=== PATIENT | female | born 1940 | race African-American/Black ===

== ENCOUNTER → 2017-04-05 | Outpatient (CLI) | payer OTHER ==
[~2017-04-05] VITALS: Ht 165.1 cm; Wt 63.5 kg
[~2017-04-05] MED LIST: ELIQUIS2.5 MG PO; ELIQUIS5 MG PO; K-DUR 20 MEQ T20 MEQ PO; KLOR-CON 1010 MEQ PO; LASIX 40 MG TAB40 M2 PO; LOPRESSOR50 PO; PACERONE 200 M200 M1 PO; POTASSIUM20 PO
[2017-04-05 10:00] VITALS: BP 148/61
== END ==
LOC: SEN 08:44
DX: I10 Essential (primary) hypertension (principal); I48.91 Unspecified atrial fibrillation; R53.83 Other fatigue; R53.81 Other malaise

== ENCOUNTER → 2017-04-27 | Outpatient (CLI) | payer OTHER ==
[~2017-04-27] VITALS: Ht 162.6 cm; Wt 64.4 kg
[2017-04-27 09:44] VITALS: BP 139/56
== END ==
LOC: SEN 08:23
DX: I11.0 Hypertensive heart disease with heart failure (principal); I50.9 Heart failure, unspecified; I48.91 Unspecified atrial fibrillation

== ENCOUNTER → 2017-12-03 | Outpatient (CLI) | payer OTHER ==
[~2017-12-03] VITALS: Ht 165.1 cm; Wt 66.3 kg
[2017-12-03 09:12] VITALS: BP 158/71
[2017-12-03 10:55] LABS: ABSOLUTE NEUTROPHILS 3.6 thou/uL (1.4-8.2); BASOPHILS 0.9 % (0.0-2.0); EOSINOPHILS 1.3 % (0.0-3.0); HEMATOCRIT 30.3 % (37.0-47.0); LYMPHOCYTES 27.2 % (24.0-44.0); MCH 28.5 pg (26.0-34.0); MCHC 33.1 g/dL (28.0-37.0); MCV 86.3 fL (80.0-100.0); MONOCYTES 6.2 % (1.0-8.0); PLATELET COUNT 420 thou/uL (150-400); POLYS 64.4 % (36.0-66.0); RBC 3.51 mil/uL (4.20-5.00); RDW 16.7 % (10.5-14.5); WBC 5.5 thou/uL (4.0-11.0)
[2017-12-03 11:09] LABS: ALBUMIN 3.7 g/dL (3.4-5.0); ANION GAP 10 mmol/L (7-16); BUN 22 mg/dL (7-18); CALCIUM 9.3 mg/dL (8.5-10.1); CHLORIDE 101 mmol/L (98-107); CHOLESTEROL 271 mg/dL (<200); CO2 27 mmol/L (21-32); CREATININE 1.3 mg/dL (0.6-1.0); GLUCOSE 86 mg/dL (74-106); HDL CHOLESTEROL 80 mg/dL (>40); LDL CHOLESTEROL 166 mg/dL (<100); MAGNESIUM 2.3 mg/dL (1.8-2.4); POTASSIUM 3.9 mmol/L (3.5-5.1); SGOT 22 U/L (15-37); SGPT 38 U/L (30-65); SODIUM 138 mmol/L (136-145); TC:HDL 3.4 Ratio (Not establshd); TOTAL BILIRUBIN 0.3 mg/dL (<0.1-1.0); TOTAL PROTEIN 8.6 g/dL (6.4-8.2); TRIGLYCERIDE 126 mg/dL (<150); VLDL 25 mg/dL (<40)
[2017-12-03 11:50] LABS: TSH 2.025 uIU/mL (0.358-3.740)
[2017-12-03 23:07] LABS: GLYCOHEMOGLOBIN (HGB A1C) 5.8 % (4.8-5.6)
== END ==
LOC: SEN 08:25
PROVIDERS: Nurse Practitioner Family
DX: I48.91 Unspecified atrial fibrillation (principal); I11.0 Hypertensive heart disease with heart failure; I50.9 Heart failure, unspecified; L60.0 Ingrowing nail; Z79.899 Other long term (current) drug therapy

== ENCOUNTER → 2018-09-01 | Outpatient (CLI) | payer OTHER | LOC: SEN 11:00 | DX: I11.0 Hypertensive heart disease with heart failure (principal); I50.9 Heart failure, unspecified; G31.84 Mild cognitive impairment of uncertain or unknown etiology; I48.91 Unspecified atrial fibrillation; R32 Unspecified urinary incontinence ==

== ENCOUNTER 2019-03-26 09:22 | Inpatient (IN) | payer OTHER ==
[~2019-03-26] VITALS: Ht 165.1 cm; Wt 62.6 kg
[2019-03-26] VITALS (38 sets, daily range): BP systolic 80–156; BP diastolic 47–99
[2019-03-26 09:47] LABS: BE(vivo) 0.5 mmol/L (-2 to +3); PCO2 35.1 mmHg (35.0-45.0); pH 7.452 (7.360-7.450); sO2 98.2 % (92.0-98.0)
[2019-03-26 10:17] LABS: ABSOLUTE NEUTROPHILS 9.4 thou/uL (1.4-8.2); BASOPHILS 0.3 % (0.0-2.0); HEMATOCRIT 41.8 % (37.0-47.0); HEMOGLOBIN 13.4 gm/dL (12.0-15.0); LYMPHOCYTES 7.5 % (24.0-44.0); MCH 30.7 pg (26.0-34.0); PLATELET COUNT 274 thou/uL (150-400); POLYS 83.2 % (36.0-66.0); RBC 4.36 mil/uL (4.20-5.00); RDW 14.8 % (10.5-14.5); WBC 11.3 thou/uL (4.0-11.0)
[2019-03-26 10:24] LABS: CALCIUM 8.6 mg/dL (8.5-10.1); CREATININE 0.8 mg/dL (0.6-1.0)
[2019-03-26 10:28] LABS: POTASSIUM 4.6 mmol/L (3.5-5.1)
[2019-03-26 10:32] LABS: TROPONIN-I 0.13 ng/mL (<0.06)
[2019-03-26 10:33] LABS: APTT 36.2 Seconds (24.5-32.8); INR 1.8; PROTIME 18.2 Seconds (9.3-11.4)
[2019-03-26] MEDS ORDERED: DILTIAZEM ER180 M2 PO (11:17)
[2019-03-26] MEDS ORDERED: LIPITOR40 MG PO (11:17)
[2019-03-26] MEDS ORDERED: PREDNISONE 5 MG5 M1 PO (11:18)
[2019-03-26] MEDS ORDERED: IPRAT-ALBUT 0.5-3 ML INH (11:18)
[2019-03-26 12:03] LABS: BE(vivo) -2.6 mmol/L (-2 to +3); HCO3 20.9 mmol/L (22.0-26.0); PO2 114.2 mmHg (80.0-100.0); pH 7.432 (7.360-7.450); sO2 98.3 % (92.0-98.0)
--- NOTE | 2019-03-26 12:16 | NUR ---
CALLED DAUGHTERIVANIA WITH UPDATE
--- NOTE | 2019-03-26 15:49 | NUR ---
PT'S DAUGHTER IVANIA CALLED. SHE WILL BE UP TO VISIT THE PT TOMORROW 03/27/19 AND WILL SIGN ANY CONSENTS AT THAT TIME.
--- NOTE | 2019-03-26 19:44 | NUR ---
[place] [address]. PT ALERT TO SELF. PT ARRIVED ON BIPAP. PULMONARY PHYSICIAN STATED IT WAS OKAY TO PLACE PT ON NC AND REMOVE BIPAP. PT PLACED ON NC AND DESATED IMMEDIATELY TO 82%. BIPAP PUT BACK ON. PT TOLERATING BIPAP WELL. NEED FOR ADDITIONAL IV FOR MEDICATIONS. IV THERAPY RN PLACE NEW IV VIA US. PT HAS REMAINS NPO THIS SHIFT DUE TO NEED FOR CONTINOUS BIPAP.
[2019-03-27] VITALS (76 sets, daily range): BP systolic 53–139; BP diastolic 24–90
[2019-03-27 04:34] LABS: HEMATOCRIT 35.3 % (37.0-47.0); HEMOGLOBIN 11.6 gm/dL (12.0-15.0); MCH 31.1 pg (26.0-34.0); MCHC 32.7 g/dL (28.0-37.0); MCV 95.2 fL (80.0-100.0); RBC 3.71 mil/uL (4.20-5.00); RDW 14.5 % (10.5-14.5)
[2019-03-27 04:50] LABS: CALCIUM 7.9 mg/dL (8.5-10.1); CREATININE 0.8 mg/dL (0.6-1.0); POTASSIUM 3.7 mmol/L (3.5-5.1)
--- NOTE | 2019-03-27 06:00 | NUR ---
NO OVERNIGHT EVENTS. PT REMAINED ON BIPAP THROUGHOUT THE NIGHT. ON CARDIZEM GTT, TITRATED DOWN TOLERATED. PT IS PROGRESSING TOWARDS GOALS. WILL CONTINUE TO MONITOR.
--- NOTE | 2019-03-27 12:27 | NUR ---
FAXED H/P TO [facility] SPOKE WITH DANIELE IN ADM SHE RECEIVED UPDATE. DP TO FOLLOW.
--- NOTE | 2019-03-27 13:11 | 2DMMODE ---
[facility] [place] [address] 2 D/M-MODE ECHOCARDIOGRAM Name: SHERRY BRADFORD Room #: 237-P ADM IN ..#: [id number] Admission: 03/26/19 Attend Phys: Roni Michel MD Discharge: Date of : 42 Report #: [id number] THIS REPORT FOR: cc: Jatinder Green MD, Shyam MD Lundgren,Frank Maria MD [facility] THIS REPORT FOR: //name// APPROVED REPORT Study performed: 03/27/2019 10:24:12 EXAM: Comprehensive 2D, Doppler, and color-flow Echocardiogram Patient Location: ICU Room #: 237 Status: routine BSA: 1.76 HR: 90 bpm BP: 92/56 mmHg Rhythm: Atrial Fibrillation Other Information Study Quality: Good Indications Congestive Heart Failure Mitral Valve Disease Atrial Fibrillation Elevated Troponin Hypertension/HDD 2D Dimensions RVDd: 42.34 mm IVSd: 17.18 (7-11mm) LVOT Diam: 17.19 (18-24mm) LVDd: 35.91 mm PWd: 17.33 (7-11mm) Ascending Ao: 34.86 (22-36mm) LVDs: 19.84 (25-40mm) Aortic Root: 35.67 mm IVC: 24.00 mm Volumes Left Atrial Volume (Systole) Single Plane 4CH: 109.14 mL Single Plane 2CH: 101.88 mL LA ESV Index: 65.00 mL/m2 [facility] [address] [place] [address] 2 D/M-MODE ECHOCARDIOGRAM Name: SANCHEZSHERRY Room #: 237-P [facility] IN .R.#: [id number] Admission: 03/26/19 Attend Phys: Roni Michel MD Discharge: Date of : 42 Report #: [id number] Aortic Valve AoV Peak Eduardo.: 1.41 m/s AO Peak Gr.: 9.04 mmHg LVOT Max P.65 mmHg LVOT Max V: 0.81 m/s [place]LE Vmax: 1.34 cm2 Mitral Valve MV Peak Gr.: 14.84 mmHg MV Mean Gr.: 8.25 mmHg MV Max Eduardo.: 1.92 m/s MV Mean Eduardo.: 1.36 m/s MV VTI: 424.64 mm MV PHT: 116.99 ms MVA (PHT): 1.88 cm2 Pulmonary Valve PV Peak Eduardo.: 0.85 m/s PV Peak Gr.: 2.86 mmHg Tricuspid Valve TR Peak Eduardo.: 2.95 m/s TR Peak Gr.: 34.85 mmHg PA Pressure: 50.00 mmHg Left Ventricle The left ventricle is normal size. There is normal LV segmental wall motion. Moderate concentric left ventricular hypertrophy. The left ventricular systolic function is normal. Left ventricular systolic function is hyperdynamic. LVEF is 65-70%. This study is not technically sufficient to allow evaluation of the LV diastolic function due to atrial fibrillation. Right Ventricle The right ventricle is normal size. The right ventricular systolic function is normal. Atria Left atrium is dilated. Right atrium is dilated. Aortic Valve Aortic valve is calcified. No aortic regurgitation is present. There is no aortic valvular stenosis. Mitral Valve There is mitral annular calcification. Thickened and restricted mitral leaflet motion. Mild mitral regurgitation. Moderate mitral stenosis. Calculated mitral valve area is 1.9 cm2 with maximum [facility] [address] [place] [address] 2 D/M-MODE ECHOCARDIOGRAM Name: SHERRY BRADFORD Room #: 237-P ADM IN M.R.#: [id number] Admission: 03/26/19 Attend Phys: Roni Michel MD Discharge: Date of : 42 Report #: [id number] pressure gradient of 16 mmHg and mean pressure gradient of 8 mmHg. Tricuspid Valve The tricuspid valve is normal in structure. There is mild to moderate tricuspid regurgitation. Estimated PAP 50 mmHg. Pulmonic Valve The pulmonary valve is normal in structure. Mild pulmonic regurgitation. Great Vessels The aortic root is normal in size. The inferior vena cava is dilated with no inspiratory collapse. Pericardium There is no pericardial effusion. <Conclusion> The left ventricular systolic function is normal. There is normal LV segmental wall motion. Moderate concentric left ventricular hypertrophy. LVEF is 65-70%. Both atria are dilated. Aortic valve is calcified. No aortic regurgitation or stenosis There is mitral annular calcification. Thickened and restricted mitral leaflet motion. Moderate mitral stenosis. Mild mitral insufficiency Calculated mitral valve area is 1.9 cm2 with maximum pressure gradient of 16 mmHg and mean pressure gradient of 8 mmHg. There is mild to moderate tricuspid regurgitation. Estimated pulmonary artery pressure of 50 mmHg. There is no pericardial effusion. <ELECTRONICALLY SIGNED> By: Frank Harrell MD, FACC 03/27/191309 09 09 Frank Harrell MD, FACC /INF
--- NOTE | 2019-03-27 15:35 | NUR ---
sbp in 58/30, hr-112. pt asymptomatic, placed back to bed with [address] hammonds notified of low bp. ns infusing per order with nibp increasing to 75/42, map-53. levophed started at 2 mcg/min.
--- NOTE | 2019-03-27 19:15 | NUR ---
minimal progress. minimal muscular discomfort only when coughing. afib, lasix iv given in am, then when pt up in chair in afternoon, bp low. ns bolus infused, started on levophed gtt & currently infusing at 4 mcg/min to keep map>60. adequate urine output. daughter present, provided support to her mother, status updated.
[2019-03-28] VITALS (74 sets, daily range): BP systolic 58–154; BP diastolic 34–98
--- NOTE | 2019-03-28 05:01 | NUR ---
ASSUMED CARE OF PATIENT AT 1900. VSS, AFEBRILE. LEVOPHED GTT TITRATED TO KEEP MAP ABOVE 60. TURNED OFF, BP REMAINS STABLE. DENIES PAIN, SOA OR N/V. O2 TITRATED DOWN WELL. TOLERATING 1L NC. PROGRESSING TOWARDS POC GOALS.
[2019-03-28 07:25] LABS: CALCIUM 8.5 mg/dL (8.5-10.1)
[2019-03-28 07:28] LABS: POTASSIUM 2.9 mmol/L (3.5-5.1)
--- NOTE | 2019-03-28 08:37 | NUR ---
chart review. spoke with bedside nurse in icu. pt up in bed, cont on isolation. set up for breakfast noted pt able to feed self. pt a & o to self, and know she in hospital, pleasant with confusion and forgetfulness. intro to cm, and dcp. pt stated " yes i will be going to my home"/patrick. cm spoke with cg at [facility], where pt lived ltc since march 03, pt in [facility]. " she walks with walker. she is set up for meals. assist x 1 for dressing and bathing. takes btx but not on any oxygen. incontinet of urine and continent of bowels. cm unable to reach contact dwayne, phone call with no answer. will cont following as needed for dc needs.
--- NOTE | 2019-03-28 10:04 | NUR ---
Nutrition: pt admitted with influenza A, afib RVR, sepsis, hypoxia. Assessed due to sepsis dx. Chart reviewed. Stable weights. Good appetite, observed 100% intake at breakfast this am. Hx oral dysphagia per chart review but usually on regular diet. Nsg reported pt pockets meds, may need to crush. Consider ST eval if needed but no other s/s aspiration. K-2.9, repleting. Low risk.
--- NOTE | 2019-03-28 19:20 | NUR ---
SLOWLY PROGRESSING. AFIB, CARDIZEM AND METOPROLOL GIVEN FOR PAC'S, FREQUENT SHORT RUN'S OF SVT 3-5 BEATS, PVC'S, FUSION BEATS. PT VERY RESPONSIVE TO LASIX. PT HAD CCU TRANSFER ORDERS HOWEVER REMAINED IN ICU RELATED TO RESTARTING LEVOPHED FOR ADEQUATE BP CONTROL. REPLACED ON 1L/NC WHEN SAO2 INTO UPPER 80'S, NONPRODUCTIVE DEEP BREATHING AND COUGH IMPROVING, TOLERATING DIET. FAMILY CALLED TO INQUIRE REGARDING PT STATUS, UPDATED.
[2019-03-29] VITALS (23 sets, daily range): BP systolic 90–139; BP diastolic 54–94
[2019-03-29 04:37] LABS: CALCIUM 8.6 mg/dL (8.5-10.1); POTASSIUM 3.1 mmol/L (3.5-5.1)
--- NOTE | 2019-03-29 05:35 | NUR ---
PT CONFUSED. ABLE TO COMMUNICATE NEEDS. VSS, OFF LEVOPHED AT 2100. POTASSUIM REPLACED DURING THE SHIFT PER PROTOCOL. DENIED PAIN. AFEBRILE. NO COMPLAINS. PT SLOWLY PROGRESSING TOWARDS GOALS. WILL CONTINUE TO MONITOR.
--- NOTE | 2019-03-29 14:42 | NUR ---
discussed during los, possible will be moved out of icu today. dcp [facility] memory care unit when medical stable for dc. update provided to [facility] liaison.
--- NOTE | 2019-03-29 17:06 | NUR ---
FAXED CLINICAL UPDATE TO [facility] SPOKE WITH DANIELE IN ADM SHE RECEIVED UPDATE. DP TO FOLLOW.
--- NOTE | 2019-03-29 18:30 | NUR ---
replacing potassium/mag per electrolyte protocol. afib with pac's, pvc's, 1 L/nc, deep breathing and cough, lungs sounds improved, goncalves previously removed, female catheter in place. progressing.
[2019-03-30] VITALS (11 sets, daily range): BP systolic 90–141; BP diastolic 59–88
[2019-03-30 05:15] LABS: HEMATOCRIT 42.4 % (37.0-47.0); HEMOGLOBIN 13.6 gm/dL (12.0-15.0); MCH 30.5 pg (26.0-34.0); MCHC 32.2 g/dL (28.0-37.0); MCV 94.8 fL (80.0-100.0); RBC 4.47 mil/uL (4.20-5.00); RDW 14.7 % (10.5-14.5); WBC 7.4 thou/uL (4.0-11.0)
[2019-03-30 05:16] LABS: CALCIUM 8.6 mg/dL (8.5-10.1); POTASSIUM 3.8 mmol/L (3.5-5.1)
--- NOTE | 2019-03-30 06:01 | NUR ---
Shift summary: Pt remains pleasantly confused, oriented to self. Dementia baseline. Assists with turns. A fib per monitor. AM labs pending. Afebrile BP stable. Room air. Lungs clear. BS active. No stool this shift. Tolerating po meds and fluids w/ assistance. Incontinent of urine s/p goncalves removal 03/29/19. Female external catheter in place, working better this am. Plan of care reviewed and updated as able. Awaiting cc tele bed availability. No family visit this shift. Pt progressing towards discharge goals.
--- NOTE | 2019-03-30 12:54 | NUR ---
cm left message for [facility] liaison that pt will possible be medically stable for dc tomorrow back to [facility]. cm spoke with pt daughter dwayne," thank you for update, and that will be fine"/daughter. will cont following as needed for dc needs. at dc bedside nurse to call report to [phone] ask for memory care unit. send chart copy with pt back to [facility]. fax dc orders to [phone].
--- NOTE | 2019-03-30 13:22 | NUR ---
ALERT MOST OF THE MORNING, ORIENTED TO PERSON AND TIME AND FOLLOWS COMMANDS. DENIES PAIN. VITALS STABLE WITH CHRONIC AFIB. TOLERATING PUREED DIET. PATIENT WILL TRANSFER OUT OF ICU WHEN ROOM IS AVAILABLE ON [facility] FLOOR.
[2019-03-31 04:00] VITALS: BP 135/87
[2019-03-31 08:00] VITALS: BP 118/76
[2019-03-31 12:00] VITALS: BP 104/72
[2019-03-31] MEDS ORDERED: CARDIZEM60 MG PO (12:21)
[2019-03-31] MEDS ORDERED: ASPIR 8181 MG PO (12:22)
[2019-03-31] MEDS ORDERED: LASIX 20 MG TAB20 MG PO (12:22)
[2019-03-31] MEDS ORDERED: POTASSIUM20 PO (12:22)
[2019-03-31] MEDS ORDERED: LEVAQUIN 750 M750 MG PO (12:23)
[2019-03-31] MEDS ORDERED: PREDNISONE 10 M10 M1 PO (12:23)
[2019-03-31 12:28] VITALS: BP 104/72
--- NOTE | 2019-03-31 13:36 | NUR ---
REPORT CALLED TO ARPAN AT [facility] WHERE PATIENT WILL BE DISCHARGING BACK TO. PATIENT WILL BE PICKED UP VIA STRETCHER AT APPROX. 1430
--- NOTE | 2019-03-31 15:44 | NUR ---
PATIENT PICKED UP AT 1435 TO TRANSPORT BACKT TO [facility].
--- NOTE | 2019-04-05 12:31 | EKG ---
[facility] [place] [address] ELECTROCARDIOGRAM REPORT Name: SHERRY BRADFORD Room #: 237-P [facility] [place] M.R.#: [id number] Admission: 03/26/19 Attend Phys: Roni Michel MD Discharge: 03/31/19 Date of : 42 Report #: [id number] THIS REPORT FOR: cc: Jatinder Green MD, Shyam MD Lundgren,Frank Maria MD [facility] THIS REPORT FOR: //name// [facility] ED Test Date: 2019-03-26 Test Time: 09:29:27 Pat Name: SHERRY BRADFORD Department: Room: 237 Gender: F Conventions Assistant: zara : 1940 Requested By: Rhonda Ayon Order Number: [id number] MD: Frank Harrell Measurements Intervals [place] Rate: 170 P: 166 [place]: 108 QRS: 16 QRSD: 88 T: 123 QT: 254 QTc: 428 Interpretive Statements Atrial fibrillation with a rapid ventricular response Paired ventricular premature complexes Poor R wave progression Nonspecific ST and T wave abnormality. Assessment limited by marked baseline artifact No previous ECG available for comparison Electronically Signed On 03-27-2019 17:14:40 TAP PULLER by Frank Harrell [email or web address] <ELECTRONICALLY SIGNED> By: Frank Harrell MD, [facility] 03/27/19 1714 8 8 Frank Harrell MD, [facility] /EPI
--- NOTE | 2019-04-05 12:42 | EKG ---
[facility] [place] [address] ELECTROCARDIOGRAM REPORT Name: SHERRY BRADFORD Room #: 237-P [facility] IN M.R.#: [id number] Admission: 03/26/19 Attend Phys: Roni Michel MD Discharge: 03/31/19 Date of : 42 Report #: [id number] THIS REPORT FOR: cc: Jatinder Green MD, Shyam MD Lundgren,Frank Maria MD [facility] THIS REPORT FOR: //name// [facility] Test Date: 2019-03-28 Test Time: 07:33:38 Pat Name: SHERRY BRADFORD Department: Room: 237 P Gender: F Hide Inspector And Sorter: JOSE : 1940 Requested By: Frank Harrell Order Number: [id number] MD: Frank Harrell Measurements Intervals [place] Rate: 83 P: [place]: QRS: -15 QRSD: 111 T: 126 QT: 412 QTc: 485 Interpretive Statements Atrial fibrillation Ventricular premature complex Poor R wave progression Nonspecific ST and T wave abnormality Compared to ECG 03/27/2019 09:04:22 No significant change was found Electronically Signed On 03-28-2019 9:26:55 TRACTOR ENGINE MECHANIC by Frank Harrell [email or web address] <ELECTRONICALLY SIGNED> By: Frank Harrell MD, FAC 03/28/19925 2 2 Frank Harrell MD, [facility] /EPI
--- NOTE | 2019-04-05 12:42 | EKG ---
[facility] [place] [address] ELECTROCARDIOGRAM REPORT Name: SHERRY BRADFORD Room #: 237-P [facility] IN M.R.#: [id number] Admission: 03/26/19 Attend Phys: Roni Michel MD Discharge: 03/31/19 Date of : 42 Report #: [id number] THIS REPORT FOR: cc: Jatinder Green MD, Shyam MD Lundgren,Frank Maria MD [facility] THIS REPORT FOR: //name// [facility] Test Date: 2019-03-27 Test Time: 09:04:22 Pat Name: SHERRY BRADFORD Department: Room: 237 P Gender: F Bread Pan Greaser: JOSE : 1940 Requested By: Rosemary Sal Order Number: [id number] MD: Frank Harrell Measurements Intervals [place] Rate: 89 P: [place]: QRS: 18 QRSD: 95 T: 115 QT: 375 QTc: 457 Interpretive Statements Atrial fibrillation Abnormal inferior Q waves Probable anteroseptal infarct, old Nonspecific T abnormalities No previous ECG available for comparison Electronically Signed On 03-27-2019 17:40:50 INSURANCE SALES MANAGER by Frank Harrell [email or web address] <ELECTRONICALLY SIGNED> By: Frank Harrell MD, [facility] 03/27/19 1740 0904 0904 Frank Harrell MD, [facility] /EPI
== END 2019-03-31 14:45 | DRG 871 ==
LOC: ER 09:22 → EROBS 12:25 → ICU 12:25 → EROBS 13:10 → ICU 14:18
PROVIDERS: Emergency Medicine; Internal Medicine; Internal Medicine Pulmonary Disease; Nurse Practitioner; ADMIT Hospitalist
DX: A41.9 Sepsis, unspecified organism (principal); J96.01 Acute respiratory failure with hypoxia; I50.33 Acute on chronic diastolic (congestive) heart failure; I48.21 Permanent atrial fibrillation; D68.59 Other primary thrombophilia; I38 Endocarditis, valve unspecified; I11.0 Hypertensive heart disease with heart failure; R65.20 Severe sepsis without septic shock; I48.91 Unspecified atrial fibrillation; J10.1 Influenza due to other identified influenza virus with other respiratory manifestations; E78.5 Hyperlipidemia, unspecified; F03.90 Unspecified dementia, unspecified severity, without behavioral disturbance, psychotic disturbance, mood disturbance, and anxiety; I16.0 Hypertensive urgency; I35.0 Nonrheumatic aortic (valve) stenosis; I95.9 Hypotension, unspecified; I05.0 Rheumatic mitral stenosis; Z79.82 Long term (current) use of aspirin; Z87.891 Personal history of nicotine dependence; Z79.899 Other long term (current) drug therapy
CPT/HCPCS: 10078

== ENCOUNTER 2020-02-27 12:15 | Inpatient (IN) | payer OTHER ==
[~2020-02-27] VITALS: Ht 154.9 cm; Wt 53.2 kg
[2020-02-27 12:15] VITALS: BP 180/115
[~2020-02-27 12:15] MED LIST changes: +ASPIR 8181 MG PO; +CARDIZEM60 MG PO; +DILTIAZEM ER180 M2 PO; +IPRAT-ALBUT 0.5-3 ML INH; +LASIX 20 MG TAB20 MG PO; +LEVAQUIN 750 M750 MG PO; +LIPITOR40 MG PO; +PREDNISONE 10 M10 M1 PO; +PREDNISONE 5 MG5 M1 PO
[2020-02-27 12:51] LABS: ABSOLUTE NEUTROPHILS 15.8 thou/uL (1.4-8.2); BASOPHILS 0.2 % (0.0-2.0); HEMATOCRIT 42.3 % (37.0-47.0); HEMOGLOBIN 13.8 gm/dL (12.0-15.0); LYMPHOCYTES 1.3 % (24.0-44.0); MCHC 32.5 g/dL (28.0-37.0); MCV 92.1 fL (80.0-100.0); MONOCYTES 6.7 % (1.0-8.0); PLATELET COUNT 248 thou/uL (150-400); POLYS 91.8 % (36.0-66.0); RBC 4.59 mil/uL (4.20-5.00); RDW 17.1 % (10.5-14.5); WBC 17.2 thou/uL (4.0-11.0)
[2020-02-27 13:04] LABS: CALCIUM 9.6 mg/dL (8.5-10.1); POTASSIUM 3.5 mmol/L (3.5-5.1)
[2020-02-27 13:13] LABS: ALBUMIN 3.6 g/dL (3.4-5.0); TOTAL BILIRUBIN 1.9 mg/dL (0.2-1.0); TOTAL PROTEIN 7.7 g/dL (6.4-8.2); TROPONIN-I 0.14 ng/mL (<0.06)
[2020-02-27 13:15] LABS: URINE BILIRUBIN NEGATIVE (Negative); URINE BLOOD 2+ (Negative); URINE CLARITY CLEAR; URINE COLOR YELLOW; URINE GLUCOSE-RANDOM* 1+ (Negative); URINE KETONES NEGATIVE (Negative); URINE LEUKOCYTES-REFLEX NEGATIVE (Negative); URINE NITRITE-REFLEX NEGATIVE (Negative); URINE PROTEIN (DIPSTICK) 2+ (Negative); URINE SPECIFIC GRAVITY 1.025 (1.005-1.035)
[2020-02-27 13:53] LABS: BACTERIA-REFLEX 1-9 Few /HPF (None Seen); CASTS None Seen /LPF (None Seen); CRYSTALS None Seen /LPF (None Seen); SQUAMOUS 0-3 Few /LPF (0-3); URINE RBC 0-2 Rare /HPF (0-2); URINE WBC-REFLEX None Seen /HPF (0-5)
--- NOTE | 2020-02-27 14:23 | EKG ---
[address] [address] ELECTROCARDIOGRAM REPORT Name: SANCHEZSHERRY [id number] Admission: 02/27/20 Attend Phys: Discharge: Date of : 42 Report #: [id number] [facility] ED Test Date: 2020-02-27 Test Time: 12:57:16 Pat Name: SHERRY BRADFORD Department: Room: Gender: F Crimper Operator: BRIANDA : 1940 Requested By: Adán Baldwin Order Number: [id number] MD: David Kapoor Measurements Intervals [place] Rate: 106 P: [place]: QRS: 8 QRSD: 89 T: 173 QT: 348 QTc: 463 Interpretive Statements Atrial fibrillation Ventricular premature complex Left ventricular hypertrophy Inferior infarct, old Baseline wander in lead(s) II,III,aVR,aVF Compared to ECG 03/28/2019 07:33:38 Left ventricular hypertrophy now present Myocardial infarct finding now present Poor R-wave progression no longer present ST (T wave) deviation no longer present Electronically Signed On 02-27-2020 14:23:22 GLUE SPREADING MACHINE OPERATOR by David Kapoor [email or web address] <ELECTRONICALLY SIGNED> By: David Kapoor MD, [facility] 02/27/20 1423 1257 1257 David Kapoor MD, [facility] /EPI
--- NOTE | 2020-02-27 17:39 | NUR ---
Patient discharged via stretcher pickup on 03-30-2019 to [facility]. 80-year-old female who presents via EMS from assisted for evaluation of increasing weakness and shortness of breath. COVID Negative Antigen. PCR pending results. Cardiology consultation secondary to atrial fibrillation and found to have increasing dyspnea and fatigue. Noted elevated Troponin. Admitted with A-Fib with RVR, Sepsis, Hypoxia, CHF. Patient has been admitted to hospitalist Dr. Law. Patient currently resides at [facility] and her daughter Madalyn is listed as next of kin with home # of [phone] and work of [phone]. NOTE: PT and OT orders are in. Spoke with Madalyn daughter and updated on above and introduced role of CM and explained that CM will follow for discharge planning as anticipated return to [facility] which daughter was in agreement to.
[2020-02-28] VITALS (13 sets, daily range): BP systolic 92–925; BP diastolic 58–83
[2020-02-28 05:32] LABS: CALCIUM 9.2 mg/dL (8.5-10.1); MAGNESIUM 1.5 mg/dL (1.8-2.4); POTASSIUM 3.7 mmol/L (3.5-5.1)
--- NOTE | 2020-02-28 11:04 | NUR ---
WOUND CARE RISK ASSESSMENT; THE PATIENT IS APHASIC. THERE ARE NO WOUNDS IDENTIFIED. 80 YEAR OLD. THE PATIENTS ALBUMIN IS 3.5. SHE SEEMS TO BE WELL CARED FOR. RECOMMENDATIONS; -PRAFO BOOTS. -Q2H TURNING -LOW AIRLOSS BED PUMP. DISCUSSED WITH GONZALO
[2020-02-28 14:10] LABS: HEMATOCRIT 42.7 % (37.0-47.0); HEMOGLOBIN 13.5 gm/dL (12.0-15.0); MCH 30.1 pg (26.0-34.0); MCHC 31.6 g/dL (28.0-37.0); MCV 95.4 fL (80.0-100.0); RBC 4.47 mil/uL (4.20-5.00); RDW 18.6 % (10.5-14.5); WBC 18.9 thou/uL (4.0-11.0)
--- NOTE | 2020-02-28 14:46 | NUR ---
Case opened to follow for dc planning. Pt is a ltc resident at [facility]. They are holding her bed and can accept her back when medically stable. Dtr Madalyn aware of her admission and updated by nursing. The pt is being treated sepsis/afib/uti. Covid negative test and no previous positive testing per [facility]. PT/OT evaling pt today. The pt does have skilled medicare days available if needed when she returns to the facility. Clinical update faxed to the [facility] liason. Dc plan is to return to the facility. She has been living there since March 2019. Will follow.
--- NOTE | 2020-02-28 19:03 | NUR ---
PT IS PLEASANT, ALERT ONLY TO SELF. PT HAS HX OF DEMENTIA. PT NPO IN AM FOR ABDOMINAL SCAN. PT/OT/SPEECH CONSULTED. PHYSICAL THERAPY WORKED WITH PT, BUT PT WAS DIFFICULT TO DIRECT. PT WOULD ANSWER YES OR NO QUESTIONS, BUT REQUIRES A LOT OF INITIATION FOR TASKING. PT CARDIZEM GTT D/C'D, ORAL CARDIZEM GIVEN. SPEECH ASSESSED PT TO BE PUREED DIET. ORAL MEDS SHOULD BE GIVEN IN APPLE SAUCE; PT EXPRESSED SHE DID NOT LIKE PUDDING. FALL PRECAUTIONS IN PLACE. POC IS TO CONTINUE TO MONITOR CHF; PT INCREASED OUTPUT TODAY. NO CONCERNS AT THIS TIME.
[2020-02-29 00:02] VITALS: BP 142/66
[2020-02-29 04:29] VITALS: BP 159/66
[2020-02-29 05:09] LABS: BASOPHILS 0.2 % (0.0-2.0); EOSINOPHILS 0.1 % (0.0-3.0); HEMATOCRIT 37.4 % (37.0-47.0); HEMOGLOBIN 12.8 gm/dL (12.0-15.0); LYMPHOCYTES 2.2 % (24.0-44.0); MCH 31.4 pg (26.0-34.0); MCHC 34.2 g/dL (28.0-37.0); MCV 91.8 fL (80.0-100.0); MONOCYTES 5.9 % (1.0-8.0); PLATELET COUNT 229 thou/uL (150-400); POLYS 91.6 % (36.0-66.0); RBC 4.08 mil/uL (4.20-5.00); RDW 16.8 % (10.5-14.5); WBC 17.5 thou/uL (4.0-11.0)
[2020-02-29 06:04] LABS: ALBUMIN 2.8 g/dL (3.4-5.0); CALCIUM 8.6 mg/dL (8.5-10.1); CREATININE 0.9 mg/dL (0.6-1.0); POTASSIUM 3.1 mmol/L (3.5-5.1); TOTAL BILIRUBIN 1.4 mg/dL (0.2-1.0); TOTAL PROTEIN 6.4 g/dL (6.4-8.2)
--- NOTE | 2020-02-29 06:06 | NUR ---
ASSUMED CARE OF THE PATIENT AT 1900; AOX2; ANSRS YES/NO QUES; DOESN'T ALWAYS FOLLOW COMMANDS; BEDREST; Q2 TURNS/ Z-GUARD PASTE FOR BOTTOM; PRAFO BOOTS/ SCDs IN PLACE; NO APPARENT PAIN; AFIB W/PVCS AT TIMES ON THE MONITOR; PLAN IS FOR PATIENT TO CONTINUE CURRENT THERAPY; WILL CONTINUE TO MONITOR.
--- NOTE | 2020-02-29 07:43 | EKG ---
[place] [address] [facility] [place] [address] ELECTROCARDIOGRAM REPORT Name: SHERRY BRADFORD Room #: 211- ADM IN M.R.#: [id number] Admission: 02/27/20 Attend Phys: Shaun Law MD Discharge: Date of : 42 Report #: [id number] [facility] Test Date: 2020-02-29 Test Time: 07:08:27 Pat Name: SHERRY BRADFORD Department: Room: 211 P Gender: F Professional Soccer Player: CONRAD : 1940 Requested By: Frank Harrell Order Number: [id number] MD: Frank Harrell Measurements Intervals [place] Rate: 105 P: [place]: QRS: -29 QRSD: 104 T: 124 QT: 354 QTc: 468 Interpretive Statements Atrial fibrillation Ventricular premature complex Abnormal R-wave progression, late transition Inferior infarct, old Compared to ECG 02/27/2020 12:57:16 Nonspecific change in the lateral ST and T wave segments Electronically Signed On 02-29-2020 7:43:39 CHAIN PULLER by Frank Harrell [email or web address] <ELECTRONICALLY SIGNED> By: Frank Harrell MD, [facility] 02/29/20 0743 7 7 Frank Harrell MD, [facility] /EPI
[2020-02-29 08:30] VITALS: BP 141/63
--- NOTE | 2020-02-29 12:33 | NUR ---
FLEETS ENEMA AT THIS TIME PT TOLERATED WELL NO PAIN OR DISCOMFORT.
--- NOTE | 2020-02-29 15:17 | NUR ---
PATIENT RESTING IN BED SHE IS TURNED SIDE TO SIDE. HAS IV KCL INFUSING ORDERED. PT IS FED PUREED DIET, DRINKS REGULAR FLUIDS THAT ARE ENCOURAGED.
[2020-02-29 16:06] LABS: INR 1.2; PROTIME 12.4 Seconds (9.3-11.4)
[2020-02-29 16:45] VITALS: BP 144/60
--- NOTE | 2020-02-29 18:59 | NUR ---
CALLED PATIENT'S DAUGHTER TO UPDATE HER ABOUT PATIENT'S CONDITION. ALSO CALLED [facility]RE[facility] PATIENT RECIEVED FLU VACCINE 12/06/2019 HAD PHARMACY TAKE OFF APR.
[2020-02-29 20:09] VITALS: BP 121/65
--- NOTE | 2020-03-01 02:07 | NUR ---
PT AOX2, TO PERSON AND PLACE. PT NOTED TO BE PLEASANTLY CONFUSED, COOPERATIVE WITH PLAN OF CARE. PT DENIES PAIN AND SOB AT REST. PT NOTED TO HAVE SOB WITH EXERTION. PT REMAINS ON 2L O2 PER NC. PT TOLERATING PO INTAKE OF FLUIDS AND PUREED DIET WITHOUT ISSUE, NPO AT MIDNIGHT. PT NOTED TO CHEW PILLS DESPITE REDIRECTION. PT DENIES NAUSEA. PT RESTING IN BED THROUGHOUT SHIFT, FREQUENT REPOSITIONING ENCOURAGED. PT REFUSING FREQUENT REPOSITIONING ASSISTANCE DUE TO REPORTS OF COMFORT. LOW AIR LOSS MATTRESS REMAINS IN PLACE. PT REFUSING TO OFFLOAD HEELS USING PARFO BOOTS OR PILLOW. PT ENCOURAGED TO NOTIFY STAFF FOR ALL NEEDS. CALL LIGHT WITHIN REACH, BED ALARM ON, BED LOCKED IN LOWEST POSITION, FREQUENT MONITORING WILL CONTINUE.
[2020-03-01 05:17] VITALS: BP 108/64
[2020-03-01 05:38] LABS: ABSOLUTE NEUTROPHILS 16.3 thou/uL (1.4-8.2); BASOPHILS 0.1 % (0.0-2.0); HEMATOCRIT 36.9 % (37.0-47.0); LYMPHOCYTES 2.7 % (24.0-44.0); MCH 30.2 pg (26.0-34.0); MCHC 32.5 g/dL (28.0-37.0); MONOCYTES 7.5 % (1.0-8.0); PLATELET COUNT 226 thou/uL (150-400); POLYS 89.7 % (36.0-66.0); RBC 3.97 mil/uL (4.20-5.00); RDW 16.9 % (10.5-14.5); WBC 18.1 thou/uL (4.0-11.0)
[2020-03-01 05:54] LABS: ALBUMIN 2.4 g/dL (3.4-5.0); CALCIUM 8.8 mg/dL (8.5-10.1); CREATININE 0.8 mg/dL (0.6-1.0); POTASSIUM 3.4 mmol/L (3.5-5.1); TOTAL BILIRUBIN 1.5 mg/dL (0.2-1.0); TOTAL PROTEIN 6.5 g/dL (6.4-8.2)
--- NOTE | 2020-03-01 08:28 | 2DMMODE ---
[facility] [place] [address] 2 D/M-MODE ECHOCARDIOGRAM Name: SHERRY BRADFORD Room #: 211-P ADM IN M.R.#: [id number] Admission: 02/27/20 Attend Phys: Shaun Law MD Discharge: Date of : 42 Report #: [id number] THIS REPORT FOR: cc: Jatinder Green MD, Shyam MD Lundgren,Frank Maria MD [facility] ~ APPROVED REPORT Study performed: 03/01/2020 07:22:38 EXAM: Comprehensive 2D, Doppler, and color-flow Echocardiogram Patient Location: Bedside Room #: 211 Status: routine BSA: 1.47 HR: 105 bpm BP: 108/64 mmHg Rhythm: Atrial Fibrillation Other Information Study Quality: Good (Heart rate ranged from 80s-120s Indications Mitral stenosis. Short of breath, elevated troponin. Hx: Afib, diastolic heart failure, COVID (10/2019), HTN, HLP. 2D Dimensions RVDd: 39.71 mm IVSd: 16.29 (7-11mm) LVOT Diam: 21.01 (18-24mm) LVDd: 33.55 mm PWd: 15.40 (7-11mm) Ascending Ao: 34.05 (22-36mm) LVDs: 21.92 (25-40mm) Aortic Root: 35.78 mm Volumes Left Atrial Volume (Systole) Single Plane 4CH: 102.30 mL Single Plane 2CH: 95.47 mL LA ESV Index: 72.00 mL/m2 Aortic Valve AoV Peak Eduardo.: 1.18 m/s AO Peak Gr.: 6.55 mmHg LVOT Max P.98 mmHg LVOT Max V: 0.86 m/s [facility] [address] [place] [address] [place] [address] 2 D/M-MODE ECHOCARDIOGRAM Name: SHERRY BRADFORD Room #: [facility] IN ..#: [id number] Admission: 02/27/20 Attend Phys: Shaun Law MD Discharge: Date of : 42 Report #: [id number] [place]LE Vmax: 2.53 cm2 Mitral Valve MV Peak Gr.: 12.89 mmHg MV Mean Gr.: 5.42 mmHg MV Decel. Time: 304.26 ms MV Max Eduardo.: 1.79 m/s MV Mean Eduardo.: 1.07 m/s MV VTI: 357.15 mm MV PHT: 82.93 ms MVA (PHT): 2.65 cm2 Pulmonary Valve PV Peak Eduardo.: 0.86 m/s PV Peak Gr.: 2.95 mmHg Tricuspid Valve TR Peak Eduardo.: 3.00 m/s RAP Estimate: 10.00 mmHg TR Peak Gr.: 36.00 mmHg PA Pressure: 46.00 mmHg Left Ventricle The left ventricle is normal size. There is normal LV segmental wall motion. Moderate concentric left ventricular hypertrophy. Left ventricular systolic function is normal. LVEF is 65-70%. This study is not technically sufficient to allow evaluation of the LV diastolic function due to atrial fibrillation. Right Ventricle The right ventricle is normal size. The right ventricular systolic function is normal. Atria Left atrium is severely dilated. Right atrium is mildly dilated. Aortic Valve The aortic valve is trileaflet, mildly calcified. No aortic regurgitation is present. There is no aortic valvular stenosis. Mitral Valve Moderate mitral annular calcification. Moderately thickened leaflets. Mild to moderate mitral stenosis. Peak pressure gradient of 13mmHg; Mean of 5mmHg. Moderate mitral regurgitation. Tricuspid Valve [facility] [address] [place] [address] 2 D/M-MODE ECHOCARDIOGRAM Name: SHERRY BRADFORD Room #: [facility] IN M.R.#: [id number] Admission: 02/27/20 Attend Phys: Shaun Law MD Discharge: Date of : 42 Report #: [id number] The tricuspid valve is normal in structure. Mild to moderate tricuspid regurgitation. Estimated PAP is 45mmHg. Pulmonic Valve The pulmonary valve is normal in structure. Mild pulmonic regurgitation. Great Vessels The aortic root is normal in size. The ascending aorta is normal in size. IVC is borderline dilated and collapses <50% with inspiration. Pericardium There is no pericardial effusion. Right pleural effusion noted. <Conclusion> Left ventricular systolic function is normal. There is normal LV segmental wall motion. LVH LVEF is 65-70%. Both atria are dilated. The aortic valve is trileaflet, mildly calcified. No aortic regurgitation or stenosis Moderate mitral annular calcification. Moderately thickened leaflets. Mild to moderate mitral stenosis (Peak pressure gradient of 13mmHg; mean of 5mmHg). Moderate mitral regurgitation. Mild to moderate tricuspid regurgitation. Estimated pulmonary artery pressure of 45mmHg. There is no pericardial effusion. <ELECTRONICALLY SIGNED> By: Frank Harrell MD, FACC 03/01/20827 7 7 Frank Harrell MD, FACC /INF
[2020-03-01 08:36] VITALS: BP 119/62
[2020-03-01 11:55] VITALS: BP 120/90
--- NOTE | 2020-03-01 15:09 | NUR ---
08:00 ALERT BUT DOES NOT ORIENT OTHER THEN TO SELF-HER BASELINE. SCHEDU;ED FOR SURGERY TODAY. CALLED AND GOT TELEPHONE CONSENT FROM DAUGHTER EXPLAINED WHAT ALL THE PROCEDURE ENTAILS AND MANAGED EXPECTATIONS. ECHO IN ROOM OBTAINING SCAN FOR SURGERY CLEARANCE LATER ON TODAY. NPO AT THIS TIME FOR SURGERY. IVF INFUSING NO ISSUES.
--- NOTE | 2020-03-01 15:11 | NUR ---
PT. STILL IN SURGERY AT THIS TIME. DAUGHTER ASKED TO BE NOTIFIED OF WHEN SHE IS BACK ON THE UNIT WILL DO SO WHEN SHE COMES BACK.
--- NOTE | 2020-03-01 15:28 | NUR ---
Pt having lap olaf today. [place] plan is to return to [facility]; if ready over the weekend please call Ana at [phone] to arrange. Fax orders to [phone] and call report to [phone]. Dtr will need to be notified at [facility] as well. They can accept the pt back under her skilled medicare benefits for therapy. They will need a chart copy sent with her.
--- NOTE | 2020-03-01 18:03 | NUR ---
MEDICATED FOR GRIMACING-PAIN POST OP? ALERT AND ATE 85% OF HER CLEAR LIQUIDS TRAY WHICH I FED HER. CARDIZEM GTT IS ON AT 5MG/HR POST OP SHE WAS NOT A CONTROLLED UZSN=706, QUICKLY RESPONDED TO MEDICATION AND HEART RATE CAME DOWEN TO 70'S WITH DRIP STARTED AND BOLUSED.
[2020-03-01 19:00] VITALS: BP 118/86
[2020-03-01 20:24] VITALS: BP 118/86
--- NOTE | 2020-03-02 00:51 | NUR ---
PT AOX2, TO PERSON AND PLACE. PT NOTED TO BE PLEASANTLY CONFUSED. PT DENIES PAIN AND SOB WHILE ON 2L VIA NC. PT ASSESSED WITH FLACC OF 1 DUE TO INTERMITTENT GRIMACING. NPO ORDERS REMAIN IN CHART AFTER PROCEDURE. REVIEWED NOTES FROM PROCEDURE, CLEAR DIET MOST RECENT ORDER PRIOR TO PROCEDURE, CLEAR LIQUID DIET RESUMED. PT TOLERATING PO INTAKE OF FLUIDS AND CLEAR LIQUID DIET WITHOUT ISSUE. PT CONTINUES TO CHEW PILLS DESPITE REDIRECTION. CARDIZEM DRIP STOPPED PT HEART RATE MANAGED IN THE 70S. PT CONTINUES WITH PO CARDIZEM BID. PT WITH ANDRY DRAIN AND DRESSING TO RIGHT ABDOMEN. DRESSING CLEAN, DRY AND INTACT. DRAIN WITH BLOODY DRAINAGE. PT RESTING IN BED, FREQUENT REPOSITIONING ENCOURAGED, PT NOTED TO SHIFT INDEPENDENTLY WHILE IN BED, REFUSING REPOSITIONING ASSISTANCE. PT ENCOURAGED TO NOTIFY STAFF FOR ALL NEEDS, CALL LIGHT WITHIN REACH, BED ALARM ON, BED LOCKED IN LOWEST POSITION, FREQUENT MONITORING WILL CONTINUE.
[2020-03-02 03:59] LABS: CALCIUM 9.1 mg/dL (8.5-10.1); CREATININE 0.9 mg/dL (0.6-1.0); POTASSIUM 3.8 mmol/L (3.5-5.1)
[2020-03-02 04:12] VITALS: BP 119/79
[2020-03-02 07:22] VITALS: BP 104/51
--- NOTE | 2020-03-02 07:51 | NUR ---
ASSUMED PATIENT CARE AT APPROXIMATELY 0200. VITAL SIGNS STABLE WITH PATIENT HAVING NO COMPLAINTS OF PAIN OR NAUSEA. PATIENT IS PLEASANTLY CONFUSED AND REMAINS ALERT TO SELF AND SOMETIMES SITUATION. SURGICAL SITE C/D/I WITH PATIENT PUTTING OUT AROUND 50 CC'S THROUGH ANDRY DRAIN. SWALLOW PRECAUTIONS FOLLOWED. CONTINUE PLAN OF CARE.
[2020-03-02 12:00] VITALS: BP 98/60
[2020-03-02 15:30] VITALS: BP 126/65
[2020-03-02 19:00] VITALS: BP 121/56
[2020-03-03 00:22] VITALS: BP 92/51
[2020-03-03 03:50] VITALS: BP 122/62
[2020-03-03 07:30] VITALS: BP 116/56
--- NOTE | 2020-03-03 08:05 | NUR ---
PT ORIENTD TO SELF. ASSESSMENTS DOCUMENTED. PT DENIES CHEST DISCOMFORT OR ANY PAIN. NO NAUSEA , VOMITING OR SOB REPORTED. CARDIZEM DC STOPPED EARLIER AT THE BIGINNING OF THE SHIFT, HR INTO 60s AND PT IS ON PO CARDIZEM. Q2 TURNS. ANDRY DRAIN INTACT, 100 CC OUTPUT. WILL CONTINUE TO MONITOR
[2020-03-03 11:20] VITALS: BP 1036/59
[2020-03-03 14:45] VITALS: BP 109/67
--- NOTE | 2020-03-03 16:53 | NUR ---
ASSESSMENT CHARTED. PT ALERT AND ORIENTED TO SELF. DENIED HAVING PAIN OR DISCOMFORT. TURNED AND REPOSITIONED Q 2 HOURS AND NEEDED. BED ALARM ON. ABD SURGICAL DRESSING C/D/I. ANDRY DRAIN INTACT. NO CONCERNS AT THIS TIME.
[2020-03-03 19:31] VITALS: BP 101/63
[2020-03-04 04:00] VITALS: BP 134/70
--- NOTE | 2020-03-04 04:20 | NUR ---
PT IS ALERT TO SELF OTHERWISE CONFUSED. LUNGS ARE COARSE ON 2 LITERS NASAL CANULA. LOWER ABDOMINAL DRESSING DRY INTACT WITH ANDRY DRAIN PRESENT.RIVAS PRESENT FOR OUT PUT. NO COMPLAINTS NOTED THIS AM.CRUSH MEDS WHEN GIVEN TO PT TO TAKE AND DOES OKAY. CALL LIGHT WITHIN REACH IF NEEDS ASSISTANCE.
[2020-03-04 07:20] VITALS: BP 128/62
--- NOTE | 2020-03-04 09:42 | NUR ---
WOUND CARE F/U; AWAKE EATING BREAKFAST, BUT CONFUSION PRESENT, ASSESSED SKIN, NO SKIN BREAKDOWN NOTED, HEELS INTACT, INCONT SMALL AMT LIQ STOOL, REMAINS ON LOW AIR LOSS PUMP TO BED, PRAFO BOOTS ON, ALEJANDRA PRN SACRAL AREA, ABD DRSG ANDRY DRAIN INTACT RECOMMENDATIONS; CONT LOW AIR LOSS PUMP TO BED, CONT PRAFO BOOTS, TURN AT LEAST Q 2HOURS, ALEJANDRA KELLERN THEATRICAL VARIETY AGENT AWARE
[2020-03-04 12:15] VITALS: BP 137/65
--- NOTE | 2020-03-04 13:22 | NUR ---
ASSUMED CARE AT 0700. PATIENT DISCHARGED AT 1306. TELEMETRY BOX SECURED. PATIENT'S BELONGINGS ACCOUNTED FOR AND TAKEN BY EMS WITH PATIENT.
--- NOTE | 2020-03-04 13:36 | NUR ---
PT DISCHARGING TODAY TO [facility] FAXED DC ORDERS/SUMMARY TO FACILITY SPOKE WITH DANIELE IN ADM SHE RECEIVED ORDERS AND ARRANGED TRANSPORT BY STRETCHER VAN FOR [id number] TODAY. NOTIFIED PT'S DTR (JARED) OF DC AND TIME OF TRANSPORT. UNIT NOTIFIED AND CHART COPY PER US. RN TO CALL REPORT TO [phone].
--- NOTE | 2020-03-05 10:59 | PATH ---
[facility] [address] [place] [address] PATHOLOGY RPT PROCEDURE Name: JOAQUIM BRADFORDN Room #: 211-P DIS IN M.R.#: [id number] Admission: 02/27/20 Date of : 42 Discharge: 03/04/20 Report #: [id number] Path Case #: [id number] L[facility] Accession Number: [id number] . 01 Material submitted: . gallbladder - GALLBLADDER BIOPSY . 01 Clinical history: . LAPAROSCOPIC CHOLECYSTITIS SEPSIS UNSPECIFIED ORGANISM PNEUMONIA UNSPECIFIED ORGANISM . 02 Diagnosis: Gallbladder, cholecystectomy: - Marked acute and gangrenous cholecystitis associated with marked serosal inflammation. (IUV:pit 03/04/2020) QTP 03/04/2020 1532 Local . 02 Electronically signed: . Karon Squires MD, Pathologist NPI- [id number] . 01 Gross description: . Received in formalin labeled "Sherry Bradford, gallbladder" is an intact cholecystectomy specimen measuring 12.6 x 6.2 x 2.7 cm. The serosa is velasquez-red and hemorrhagic with velasquez-white purulent exudate and a full thickness defect adjacent to the cystic neck measuring 0.8 cm. The specimen is opened to reveal dark brown velvety mucosa with extensive velasquez-white purulent exudate, without polyps or masses. The average wall thickness is 0.1-1.0 cm. Calculi are not present within the gallbladder or container. Sizing Machine And Drier Operator sections of the fundus and body and the cystic duct margin are submitted in A1-A2. ([facility]; 03/03/2020) [facility] 03/03/2020 0950 Local . 02 Pathologist provided ICD-10: K81.0, K65.8 . 02 CPT . 625258 Specimen Comment: A courtesy copy of this report has been sent to [phone] Specimen Comment: Report sent to Specimen Comment: A duplicate report has been generated due to demographic updates. Performed at: [address] [place] [address] PATHOLOGY RPT PROCEDURE Name: SHERRY BRADFORD Room #: 211-P DIS IN M.R.#: [id number] Admission: 02/27/20 Date of : 42 Discharge: 03/04/20 Report #: [id number] Path Case #: [id number] [address] [facility] [address], [place], [place] [id number] MD Koby Kamara MD Phone: [phone] Performed at: [address] [id number] MD Karon Squires MD Phone: [phone]
[2020-03-06] MEDS ORDERED: LASIX 20 MG TAB20 MG PO (07:56)
== END 2020-03-04 15:00 | DRG 853 ==
LOC: ER 12:15 → EROBS 14:50 → 2N 14:50
PROVIDERS: Emergency Medicine; Internal Medicine; Surgery; ADMIT Hospitalist; ATTEND Hospitalist
PROC: 0FT44ZZ Resection of Gallbladder, Percutaneous Endoscopic Approach (ICD-10-PCS; principal; 2020-03-01)
DX: A41.9 Sepsis, unspecified organism (principal); J18.9 Pneumonia, unspecified organism; I50.33 Acute on chronic diastolic (congestive) heart failure; I48.21 Permanent atrial fibrillation; D68.59 Other primary thrombophilia; K80.00 Calculus of gallbladder with acute cholecystitis without obstruction; K82.1 Hydrops of gallbladder; K80.80 Other cholelithiasis without obstruction; E78.5 Hyperlipidemia, unspecified; R13.0 Aphagia; F03.90 Unspecified dementia, unspecified severity, without behavioral disturbance, psychotic disturbance, mood disturbance, and anxiety; R77.8 Other specified abnormalities of plasma proteins; I08.1 Rheumatic disorders of both mitral and tricuspid valves; I11.0 Hypertensive heart disease with heart failure; R13.10 Dysphagia, unspecified; R53.81 Other malaise; Z86.16 Personal history of COVID-19; Z20.822 Contact with and (suspected) exposure to COVID-19; Z79.82 Long term (current) use of aspirin; Z79.899 Other long term (current) drug therapy; Z86.73 Personal history of transient ischemic attack (TIA), and cerebral infarction without residual deficits
CPT/HCPCS: 10081; 50010; 50101; 50331; 50411; 50555; 50558; 51297; 51489; 52265; 52266; 52287; 53307; 53310; 53312; 54022; 54118; 55245; 56462; 56525; 56526; 62110; 62900; 70005

== ENCOUNTER 2020-03-12 20:27 | Emergency (ER) | payer OTHER ==
[~2020-03-12] VITALS: Ht 152.4 cm; Wt 45.8 kg
--- NOTE | ~2020-03-12 | EMS ---
[address] [address] EMS Patient Care Report Name: SHERRY BRADFORD Room #: DEP JEWELS Santana#: [id number] Admission: 03/12/20 Attend Phys: Discharge: 03/12/20 Date of : 42 Report #: [id number] THIS REPORT FOR: //name// Report Transmitted: 03/13/2020 07:24 EMS Care Summary [place], [place]/[facility] Incident [id number] @ 03/12/2020 19:45 Incident Location [address] [place] [address] Patient SHERRY BRADFORD Female, 80 Years 1940 Patient Address [address] [place], [place] [id number] Patient History Hypertension (HTN),Hyperlipidemia,Sepsis,Novel Coronavirus (COVID-19), Patient Allergies No known allergies, Patient Medications Atorvastatin, Vitamin D, Aspirin, Lasix, Chief Complaint cardiac arrest Disposition Transported [place] [facility] Reason Cardiac Arrest/ Transported To [facility] Narrative 80 y/o female found lying on cpr board on mattress on the floor in her prison room. [facility] pumper 36 on scene. pumper crew had applied monitor et started cpr. cpr was being done by ri staff upon the pumper's arrival on scene to . [address] [address] EMS Patient Care Report Name: SHERRY BRADFORD Room #: DEP [facility]#: [id number] Admission: 03/12/20 Attend Phys: Discharge: 03/12/20 Date of : 42 Report #: [id number] pt is pulseless et apneic. pt is in pea when pulse checked. igel is placed et pt is ventilated c bvm. end tidal co2 placed et no reading was picked up. pt is intubated et end tidal reading increases drastically. io is started et epi is given. pt has return of rosc on scene, b/p obtained et 12-lead done. pt is moved carefully p 5 minutes of rosc to the stretcher et out to the unit. car 120 is also on scene. autopulse was placed under pt right before rosc. we continue to ventilate pt. pt is moved to unit. car 120 et medic ride in back c pt to the er. pt continues to maintain rosc. enroot pt looses pulse et autopulse is started. another round of epi is given enroot. we arrive @ the er et transfer care to [facility] nursing staff. pt has return of rosc in the er upon our arrival et transfer of pt to er bed. Initial Vitals @PTAP: 201,R: 16,Pain: 0/10,GCS: 3, @20:05P: 114,R: 16,Pain: 0/10,GCS: 3,EtCO2: 73, @20:24P: 165,R: 16,Pain: 0/10,GCS: 3,EtCO2: 60,SpO2: 94,AL Suspected: true @20:02P: 143,R: 16,Pain: 0/10,GCS: 3,Glucose: 137,EtCO2: 0, @19:59P: 116,R: 16,Pain: 0/10,GCS: 3, @20:21P: 156,R: 16,Pain: 0/10,GCS: 3,EtCO2: 58,SpO2: 80,AL Suspected: true @19:59P: 30,R: 16,Pain: 0/10,GCS: 3,EtCO2: 0, @20:17P: 114,R: 16,Pain: 0/10,GCS: 3,EtCO2: 38,SpO2: 91,AL Suspected: true @20:08P: 145,R: 16,Pain: 0/10,GCS: 3,EtCO2: 51, @20:15P: 132,R: 16,Pain: 0/10,GCS: 3,EtCO2: 50,AL Suspected: true @20:10P: 152,R: 16,Pain: 0/10,GCS: 3,EtCO2: 41,AL Suspected: true @20:08P: 147,R: 16,BP: 146/91,Pain: 0/10,GCS: 3,EtCO2: 44,Revised Trauma: 8, @20:19P: 83,R: 16,Pain: 0/10,GCS: 3,EtCO2: 62,SpO2: 69,AL Suspected: true Assessments @19:55MENTAL:Unresponsive,SKIN:Hot,HEENT:Eyes: Right: Non-Reactive,Eyes: Left: Non-Reactive,Neck/Airway: No Abnormalities,LUNG SOUNDS:General: No Abnormalities,ABDOMEN:General: No Abnormalities,PELVIS//GI:No Abnormalities,EXTREMITIES:Left Leg: Weakness,Right Arm: Weakness,Left Arm: Weakness,Right Leg: Weakness,Capillary Refill: Left Lower: > 5 Sec,Capillary Refill: Right Lower: > 5 Sec,Capillary Refill: Left Upper: > 5 Sec,Capillary Refill: Right Upper: > 5 Sec,PULSE:Femoral: Absent,Pedal: Absent,Brachial: Absent,Radial: Absent,Carotid: Absent,NEURO:Other,@20:08MENTAL:Unresponsive,SKIN:Hot,HEENT:Eyes: Left: Non-Reactive,Eyes: Right: Non-Reactive,Head/Face: No Abnormalities,Neck/Airway: No Abnormalities,LUNG SOUNDS:General: No Abnormalities,ABDOMEN:General: No Abnormalities,PELVIS//GI:No Abnormalities,EXTREMITIES:Left Arm: Weakness,Right Leg: Weakness,Right Arm: Weakness,Left Leg: Weakness,Capillary Refill: Right Lower: 5 Sec,Capillary Refill: Left Upper: 5 Sec,Capillary Refill: Left Lower: 5 Sec,Capillary Refill: Right Upper: 5 Sec,PULSE:Brachial: 2+ Normal,Femoral: 2+ Normal,Pedal: Absent,Radial: 1+ Thready,Carotid: 2+ Normal,NEURO:Other, [facility] [address] [place] [address] EMS Patient Care Report Name: JOAQUIM BRADFORDN Room #: [facility] Max#: [id number] Admission: 03/12/20 Attend Phys: Discharge: 03/12/20 Date of : 42 Report #: [id number] Impression Cardiac arrest Procedures @PTASucceeded@20:05Epinephrine 1:10 - 1 Milligrams (mg) - Intraosseous (IO)Response: Improved@20:1012-Lead ECGResponse: UnchangedSucceeded@20:21Epinephrine 1:10 - 1 Milligrams (mg) - Intraosseous (IO)Response: Improved@20:02Epinephrine 1:10 - 1 Milligrams (mg) - Intraosseous (IO)Response: Unchanged@19:59Epinephrine 1:10 - 1 Milligrams (mg) - Intravenous (IV)Response: Unchanged@19:55ALS AssessmentResponse: UnchangedSucceeded@19:56iGEL Complications: None,Response: UnchangedSucceeded@19:55Oxygen FlowRate: 15 Device: Bag Valve Mask (BVM) Response: UnchangedSucceeded@20:00Orotracheal Intubation Complications: None,Response: UnchangedSucceeded@19:55Saline Lock 0cc (20 ga) Site: Antecubital-LeftResponse: UnchangedFailed@19:58Normal Saline (.9% NaCl) 500cc (EZ-IO (Blue 25mm)) Site: ZZ-Yuthx-Eyse ProximalResponse: UnchangedSucceeded@20:093-Lead ECGResponse: UnchangedSucceeded@20:21Response: ImprovedSucceeded Timeline SWEET POTATO DISINTEGRATOR,Succeeded, SWEET POTATO DISINTEGRATOR,BP: / M,PULSE: 201,RR: 16 R,SPO2: Ox,ETCO2: ,BG: ,PAIN: 0,GCS: 3, 19:44,Call Received 19:44,Dispatch Notified 19:45,Dispatched 19:46,En Route 19:53,On Scene 19:55,At Patient 19:55,ALS Assessment,Response: UnchangedSucceeded, 19:55,Oxygen FlowRate: 15 Device: Bag Valve Mask (BVM) Response: UnchangedSucceeded, 19:55,Saline Lock 0cc 20 ga Site: Antecubital-Left,Response: UnchangedFailed, 19:56,iGEL Complications: None,,Response: UnchangedSucceeded, 19:58,Normal Saline (.9% NaCl) 500cc EZ-IO (Blue 25mm) Site: VL-Nuqfj-Pfac Proximal,Response: UnchangedSucceeded, 19:59,Epinephrine 1:10 - 1 Milligrams (mg) - Intravenous (IV),Response: Unchanged 19:59,BP: / M,PULSE: 30,RR: 16 R,SPO2: Ox,ETCO2: 0 ,BG: ,PAIN: 0,GCS: 3, 19:59,BP: / M,PULSE: 116,RR: 16 R,SPO2: Ox,ETCO2: ,BG: ,PAIN: 0,GCS: 3, 20:00,Orotracheal Intubation Complications: None,,Response: UnchangedSucceeded, 20:02,Epinephrine 1:10 - 1 Milligrams (mg) - Intraosseous (IO),Response: Unchanged 20:02,BP: / M,PULSE: 143,RR: 16 R,SPO2: Ox,ETCO2: 0 ,B,PAIN: 0,GCS: 3, 20:05,Epinephrine 1:10 - 1 Milligrams (mg) - Intraosseous (IO),Response: Improved [facility] [address] [place] [address] EMS Patient Care Report Name: SHERRY BRADFORD Room #: DEP Max#: [id number] Admission: 03/12/20 Attend Phys: Discharge: 03/12/20 Date of : 42 Report #: [id number] 20:05,BP: / M,PULSE: 114,RR: 16 R,SPO2: Ox,ETCO2: 73 ,BG: ,PAIN: 0,GCS: 3, 20:08,BP: / M,PULSE: 145,RR: 16 R,SPO2: Ox,ETCO2: 51 ,BG: ,PAIN: 0,GCS: 3, 20:08,BP: 146/91 M,PULSE: 147,RR: 16 R,SPO2: Ox,ETCO2: 44 ,BG: ,PAIN: 0,GCS: 3, 20:09,3-Lead ECG,Response: UnchangedSucceeded, 20:10,12-Lead ECG,Response: UnchangedSucceeded, 20:10,BP: / M,PULSE: 152,RR: 16 R,SPO2: Ox,ETCO2: 41 ,BG: ,PAIN: 0,GCS: 3, 20:15,BP: / M,PULSE: 132,RR: 16 R,SPO2: Ox,ETCO2: 50 ,BG: ,PAIN: 0,GCS: 3, 20:17,Depart Scene 20:17,BP: / M,PULSE: 114,RR: 16 R,SPO2: 91 Ox,ETCO2: 38 ,BG: ,PAIN: 0,GCS: 3, 20:19,BP: / M,PULSE: 83,RR: 16 R,SPO2: 69 Ox,ETCO2: 62 ,BG: ,PAIN: 0,GCS: 3, 20:21,Response: ImprovedSucceeded, 20:21,BP: / M,PULSE: 156,RR: 16 R,SPO2: 80 Ox,ETCO2: 58 ,BG: ,PAIN: 0,GCS: 3, 20:21,Epinephrine 1:10 - 1 Milligrams (mg) - Intraosseous (IO),Response: Improved 20:24,BP: / M,PULSE: 165,RR: 16 R,SPO2: 94 Ox,ETCO2: 60 ,BG: ,PAIN: 0,GCS: 3, 20:25,At Destination 20:56,Call Closed Disclaimer v1.1 Copyright 2020 [email or web address] This EMS Care Summary contains data elements from the applicable legal record (which may be displayed differently). It is designed to provide pertinent information for the following purposes: continuity of care, clinical quality, and state data reporting. The complete legal record is available to ED staff and administrators of the receiving hospital in [employer]'s Patient Tracker. All data is provided "as is."
--- NOTE | ~2020-03-12 | EMS ---
[address] [address] EMS Patient Care Report Name: SHERRY BRADFORD Room #: DEP JEWELS Santana#: [id number] Admission: 03/12/20 Attend Phys: Discharge: 03/12/20 Date of : 42 Report #: [id number] THIS REPORT FOR: //name// Report Transmitted: 03/13/2020 10:12 EMS Care Summary [place], [place]/[facility] Incident [id number] @ 03/12/2020 19:45 Incident Location [address] [place] [address] Patient SHERRY BRADFORD Female, 80 Years 1940 Patient Address [address] [place], [place] [id number] Patient History Hypertension (HTN),Hyperlipidemia,Sepsis,Novel Coronavirus (COVID-19), Patient Allergies No known allergies, Patient Medications Atorvastatin, Vitamin D, Aspirin, Lasix, Chief Complaint cardiac arrest Disposition Transported [place] Dis[facility] Reason Cardiac Arrest/ Transported To [facility] Narrative 80 y/o female found lying on cpr board on mattress on the floor in her fdc room. [facility] pumper 36 on scene. pumper crew had applied monitor et started cpr. cpr was being done by tn staff upon the pumper's arrival on scene to . [address] [address] EMS Patient Care Report Name: SHERRY BRADFORD Room #: DEP [facility]#: [id number] Admission: 03/12/20 Attend Phys: Discharge: 03/12/20 Date of : 42 Report #: [id number] pt is pulseless et apneic. pt is in pea when pulse checked. igel is placed et pt is ventilated c bvm. end tidal co2 placed et no reading was picked up. pt is intubated et end tidal reading increases drastically. io is started et epi is given. pt has return of rosc on scene, b/p obtained et 12-lead done. pt is moved carefully p 5 minutes of rosc to the stretcher et out to the unit. car 120 is also on scene. autopulse was placed under pt right before rosc. we continue to ventilate pt. pt is moved to unit. car 120 et medic ride in back c pt to the er. pt continues to maintain rosc. enroot pt looses pulse et autopulse is started. another round of epi is given enroot. we arrive @ the er et transfer care to [facility] nursing staff. pt has return of rosc in the er upon our arrival et transfer of pt to er bed. Appended: Unable to obtain signatures from nurse due to what was going on with patient. Initial Vitals @PTAP: 201,R: 16,Pain: 0/10,GCS: 3, @20:05P: 114,R: 16,Pain: 0/10,GCS: 3,EtCO2: 73, @20:24P: 165,R: 16,Pain: 0/10,GCS: 3,EtCO2: 60,SpO2: 94,WI Suspected: true @20:02P: 143,R: 16,Pain: 0/10,GCS: 3,Glucose: 137,EtCO2: 0, @19:59P: 116,R: 16,Pain: 0/10,GCS: 3, @20:21P: 156,R: 16,Pain: 0/10,GCS: 3,EtCO2: 58,SpO2: 80,WI Suspected: true @19:59P: 30,R: 16,Pain: 0/10,GCS: 3,EtCO2: 0, @20:17P: 114,R: 16,Pain: 0/10,GCS: 3,EtCO2: 38,SpO2: 91,WI Suspected: true @20:08P: 145,R: 16,Pain: 0/10,GCS: 3,EtCO2: 51, @20:15P: 132,R: 16,Pain: 0/10,GCS: 3,EtCO2: 50,WI Suspected: true @20:10P: 152,R: 16,Pain: 0/10,GCS: 3,EtCO2: 41,WI Suspected: true @20:08P: 147,R: 16,BP: 146/91,Pain: 0/10,GCS: 3,EtCO2: 44,Revised Trauma: 8, @20:19P: 83,R: 16,Pain: 0/10,GCS: 3,EtCO2: 62,SpO2: 69,WI Suspected: true Assessments @19:55MENTAL:Unresponsive,SKIN:Hot,HEENT:Eyes: Right: Non-Reactive,Eyes: Left: Non-Reactive,Neck/Airway: No Abnormalities,LUNG SOUNDS:General: No Abnormalities,ABDOMEN:General: No Abnormalities,PELVIS//GI:No Abnormalities,EXTREMITIES:Left Leg: Weakness,Right Arm: Weakness,Left Arm: Weakness,Right Leg: Weakness,Capillary Refill: Left Lower: > 5 Sec,Capillary Refill: Right Lower: > 5 Sec,Capillary Refill: Left Upper: > 5 Sec,Capillary Refill: Right Upper: > 5 Sec,PULSE:Femoral: Absent,Pedal: Absent,Brachial: Absent,Radial: Absent,Carotid: Absent,NEURO:Other,@20:08MENTAL:Unresponsive,SKIN:Hot,HEENT:Eyes: Left: Non-Reactive,Eyes: Right: Non-Reactive,Head/Face: No Abnormalities,Neck/Airway: No Abnormalities,LUNG SOUNDS:General: No Abnormalities,ABDOMEN:General: No Abnormalities,PELVIS//GI:No Abnormalities,EXTREMITIES:Left Arm: Weakness,Right Leg: Weakness,Right Arm: Weakness,Left Leg: Weakness,Capillary Refill: Right Lower: 5 Sec,Capillary Refill: Left Upper: 5 Sec,Capillary Refill: Left Lower: 5 Sec,Capillary Refill: Right Upper: 5 Sec,PULSE:Brachial: 2+ Normal,Femoral: 2+ Normal,Pedal: Absent,Radial: 1+ Thready,Carotid: 2+ [facility] [address] [place] [address] EMS Patient Care Report Name: SHERRY BRADFORD Room #: [facility].#: [id number] Admission: 03/12/20 Attend Phys: Discharge: 03/12/20 Date of : 42 Report #: [id number] Normal,NEURO:Other, Impression Cardiac arrest Procedures @PTASucceeded@20:05Epinephrine 1:10 - 1 Milligrams (mg) - Intraosseous (IO)Response: Improved@20:1012-Lead ECGResponse: UnchangedSucceeded@20:21Epinephrine 1:10 - 1 Milligrams (mg) - Intraosseous (IO)Response: Improved@20:02Epinephrine 1:10 - 1 Milligrams (mg) - Intraosseous (IO)Response: Unchanged@19:59Epinephrine 1:10 - 1 Milligrams (mg) - Intravenous (IV)Response: Unchanged@19:55ALS AssessmentResponse: UnchangedSucceeded@19:56iGEL Complications: None,Response: UnchangedSucceeded@19:55Oxygen FlowRate: 15 Device: Bag Valve Mask (BVM) Response: UnchangedSucceeded@20:00Orotracheal Intubation Complications: None,Response: UnchangedSucceeded@19:55Saline Lock 0cc (20 ga) Site: Antecubital-LeftResponse: UnchangedFailed@19:58Normal Saline (.9% NaCl) 500cc (EZ-IO (Blue 25mm)) Site: FW-Abvfl-Whnq ProximalResponse: UnchangedSucceeded@20:093-Lead ECGResponse: UnchangedSucceeded@20:21Response: ImprovedSucceeded Timeline MEASURING MACHINE TENDER,Succeeded, MEASURING MACHINE TENDER,BP: / M,PULSE: 201,RR: 16 R,SPO2: Ox,ETCO2: ,BG: ,PAIN: 0,GCS: 3, 19:44,Call Received 19:44,Dispatch Notified 19:45,Dispatched 19:46,En Route 19:53,On Scene 19:55,At Patient 19:55,ALS Assessment,Response: UnchangedSucceeded, 19:55,Oxygen FlowRate: 15 Device: Bag Valve Mask (BVM) Response: UnchangedSucceeded, 19:55,Saline Lock 0cc 20 ga Site: Antecubital-Left,Response: UnchangedFailed, 19:56,iGEL Complications: None,,Response: UnchangedSucceeded, 19:58,Normal Saline (.9% NaCl) 500cc EZ-IO (Blue 25mm) Site: HL-Bdrbm-Mnao Proximal,Response: UnchangedSucceeded, 19:59,Epinephrine 1:10 - 1 Milligrams (mg) - Intravenous (IV),Response: Unchanged 19:59,BP: / M,PULSE: 30,RR: 16 R,SPO2: Ox,ETCO2: 0 ,BG: ,PAIN: 0,GCS: 3, 19:59,BP: / M,PULSE: 116,RR: 16 R,SPO2: Ox,ETCO2: ,BG: ,PAIN: 0,GCS: 3, 20:00,Orotracheal Intubation Complications: None,,Response: UnchangedSucceeded, 20:02,Epinephrine 1:10 - 1 Milligrams (mg) - Intraosseous (IO),Response: Unchanged 20:02,BP: / M,PULSE: 143,RR: 16 R,SPO2: Ox,ETCO2: 0 ,B,PAIN: 0,GCS: 3, [facility] [address] [place] [address] EMS Patient Care Report Name: SHERRY BRADFORD [id number] Admission: 03/12/20 Attend Phys: Discharge: 03/12/20 Date of : 42 Report #: [id number] 20:05,Epinephrine 1:10 - 1 Milligrams (mg) - Intraosseous (IO),Response: Improved 20:05,BP: / M,PULSE: 114,RR: 16 R,SPO2: Ox,ETCO2: 73 ,BG: ,PAIN: 0,GCS: 3, 20:08,BP: / M,PULSE: 145,RR: 16 R,SPO2: Ox,ETCO2: 51 ,BG: ,PAIN: 0,GCS: 3, 20:08,BP: 146/91 M,PULSE: 147,RR: 16 R,SPO2: Ox,ETCO2: 44 ,BG: ,PAIN: 0,GCS: 3, 20:09,3-Lead ECG,Response: UnchangedSucceeded, 20:10,12-Lead ECG,Response: UnchangedSucceeded, 20:10,BP: / M,PULSE: 152,RR: 16 R,SPO2: Ox,ETCO2: 41 ,BG: ,PAIN: 0,GCS: 3, 20:15,BP: / M,PULSE: 132,RR: 16 R,SPO2: Ox,ETCO2: 50 ,BG: ,PAIN: 0,GCS: 3, 20:17,Depart Scene 20:17,BP: / M,PULSE: 114,RR: 16 R,SPO2: 91 Ox,ETCO2: 38 ,BG: ,PAIN: 0,GCS: 3, 20:19,BP: / M,PULSE: 83,RR: 16 R,SPO2: 69 Ox,ETCO2: 62 ,BG: ,PAIN: 0,GCS: 3, 20:21,Response: ImprovedSucceeded, 20:21,BP: / M,PULSE: 156,RR: 16 R,SPO2: 80 Ox,ETCO2: 58 ,BG: ,PAIN: 0,GCS: 3, 20:21,Epinephrine 1:10 - 1 Milligrams (mg) - Intraosseous (IO),Response: Improved 20:24,BP: / M,PULSE: 165,RR: 16 R,SPO2: 94 Ox,ETCO2: 60 ,BG: ,PAIN: 0,GCS: 3, 20:25,At Destination 20:56,Call Closed Disclaimer v1.1 Copyright 2020 [employer] This EMS Care Summary contains data elements from the applicable legal record (which may be displayed differently). It is designed to provide pertinent information for the following purposes: continuity of care, clinical quality, and state data reporting. The complete legal record is available to ED staff and administrators of the receiving hospital in [employer] Patient Tracker. All data is provided "as is."
[2020-03-12] MEDS ORDERED: FUROSEMIDE 20 M20 M1 PO (20:30)
[2020-03-12 20:44] VITALS: BP 88/29
[2020-03-12 20:55] LABS: BE(vivo) -10.5 mmol/L (-2 to +3); PCO2 58.8 mmHg (35.0-45.0); PO2 197.3 mmHg (80.0-100.0); sO2 98.9 % (92.0-98.0)
[2020-03-12 20:58] LABS: pH 7.127 (7.360-7.450)
--- NOTE | 2020-03-13 13:35 | EKG ---
[place] [address] [email or web address] [address] ELECTROCARDIOGRAM REPORT Name: SANCHEZSHERRY Room #: [facility] [id number] Admission: 03/12/20 Attend Phys: Discharge: 03/12/20 Date of : 42 Report #: [id number] [facility] ED Test Date: 2020-03-12 Test Time: 20:28:17 Pat Name: SHERRY BRADFORD Department: Room: Gender: F Materials Director: [facility] : 1940 Requested By: Juliocesar Negrete Order Number: [id number] MD: David Kapoor Measurements Intervals S[place]y Rate: 102 P: SD: QRS: -94 QRSD: 144 T: 79 QT: 407 QTc: 531 Interpretive Statements Suspect Atrial flutter with predominant 2:1 AV block Right bundle branch block Inferior infarct, acute (LCx) Baseline wander in lead(s) V5,V6 Compared to ECG 02/29/2020 07:08:27 Right bundle-branch block now present Atrial fibrillation no longer present Ventricular premature complex(es) no longer present Electronically Signed On 03-13-2020 13:35:15 LINEN MANAGER by David Kapoor [email or web address] <ELECTRONICALLY SIGNED> By: David Kapoor MD, FACC 03/13/205 27 27 David Kapoor MD, FAC /EPI
== END 2020-03-12 20:53 ==
LOC: ER 20:27
PROVIDERS: Pediatrics
DX: I46.9 Cardiac arrest, cause unspecified (principal); I11.0 Hypertensive heart disease with heart failure; I50.9 Heart failure, unspecified; F03.90 Unspecified dementia, unspecified severity, without behavioral disturbance, psychotic disturbance, mood disturbance, and anxiety; I48.91 Unspecified atrial fibrillation; Z79.899 Other long term (current) drug therapy; Z79.82 Long term (current) use of aspirin